=== PATIENT | female | born 1980 | race Caucasian/White ===

== ENCOUNTER 2020-10-25 16:47 | Inpatient (IN) | payer MEDICAID, SELFPAY ==
[2020-10-25 16:48] VITALS: BP 196/100; PULSE 117; RESP 16; TEMP 36.2; O2SAT 100; BMI 21.2
--- NOTE | 2020-10-25 18:25 | EKG12_ITS ---
Test Reason : SUB ABUSE Blood Pressure : / mmHG Vent. Rate : 096 BPM Atrial Rate : 096 BPM P-R Int : 186 ms QRS Dur : 074 ms QT Int : 344 ms P-R-T Axes : 000 062 051 degrees QTc Int : 434 ms Normal sinus rhythm Normal ECG Confirmed by SYLVESTER LUGO, SEAMUS ([id number]), managing editor KENDELL STEWART ([id number]) on 10/30/2020 9:04:32 AM Referred By: Confirmed By:RADHA PHAN MD
--- NOTE | 2020-10-25 18:27 | EDS_ITS ---
HPI History of Present Illness Chief Complaint: Substance Abuse Informant: patient and friend Narrative Narrative: 39-year-old female arriving to the emergency department requesting detox from alcohol. Patient states that she has been drinking alcohol every day since 2012. Most days she will have at least 6-12 beers and every other day will have at least 1 pint of vodka or rum with the beer. She states that she wakes up in the morning has a couple coffee on a couple hours later she will need to start drinking. She is not currently working has been about 2 years since she last worked. Her mom is supporting her income segundo advised her the alcohol. She states it is because some family issues. Patient states the reason for seeking detox today is that she is just tired of depending on it. She also notes a history of Percocet and OxyContin abuse and self detox and the last use of that was 2015. She denies any suicidal or homicidal ideation. Patient notes her last alcoholic drink was at 1800 hrs. yesterday. She denies any auditory visual hallucinations. She feels sweaty with hot flashes. She feels palpitations. [facility] Medical History Alcohol abuse Anxiety Hypertension Substance abuse Home Medications NK 10/25/20 [History Last Taken Unknown] Allergy/AdvReac Type Severity Reaction Status Date / Time No Known Allergies Allergy Verified 10/25/20 16:50 Social History (Updated 10/25/20 @ 18:[address] Richar Ventura DO) Smoking Status: Current every day smoker tobacco type: cigarettes alcohol intake: current alcohol intake frequency: other Alcohol type: beer and hard liquor details: Alcoholism substance use type: other details: Former opiate addiction ROS ROS ED Constitutional Constitutional ED: Reports chills and sweats; Denies weight loss Eyes Eyes: Denies change in vision or diplopia ENT ENT ED: Denies ear pain, rhinorrhea or sore throat Cardiovascular Cardiovascular: Reports palpitations; Denies chest pain, orthopnea or racing heartbeat Respiratory/Chest Respiratory/Chest: Denies cough, dyspnea or orthopnea Gastrointestinal Gastrointestinal: Reports abdominal pain and nausea; Denies diarrhea or vomiting Genitourinary Genitourinary ED: Denies dysuria, hematuria or urinary frequency Musculoskeletal Musculoskeletal: Reports myalgias; Denies arthralgias Integumentary Denies abscess or rash Neurologic Neurologic: Denies headache(s) or weakness Psychiatric Psychiatric: Denies anxiety, depression, suicidal ideation or suicidal thoughts Endocrine Endocrinology: Denies polydipsia, polyphagia or polyuria Allergic/Immunologic Allergic/Immunologic ED: Denies mouth swelling, tongue swelling or urticaria EXAM Physical Exam Const Vital Signs: 10/25/20 16:48 10/25/20 19:23 10/25/20 19:24 Temperature 97.2 F L 98.2 F Temperature Source Temporal Temporal Pulse Rate 117 H 89 Respiratory Rate 16 16 Blood Pressure 196/100 H 144/92 H 144/92 H Blood Pressure Mean 132 109 109 Blood Pressure Source Monitor Blood Pressure Position Semi-Fowlers Blood Pressure Location Right Arm Pulse Ox 100 99 Oxygen Delivery Method Room Air Room Air Positive well nourished and well developed General Appearance ED: well developed HEENT Reports normocephalic, head/scalp atraumatic and moist mucous membranes Eyes PERRL and EOMs intact bilaterally Neck no lymphadenopathy, supple and no JVD Resp normal respiratory effort and clear to auscultation bilaterally Cardio regular rate and no murmurs Rate: tachycardic GI normal to inspection, nondistended, normoactive bowel sounds and non-tender Palpation: soft Back/Spine no CVA tenderness and normal ROM Extremity normal to inspection General Extremety ED: Negative for edema General Extremity: Negative for edema Neuro oriented x3 and CN's II-XII intact bilaterally Sensorium / Orientation: alert Motor Exam: strength 5/5 throughout Psych mental status grossly normal Mood & Affect: Negative for depressed or tearful Skin no rashes or lesions noted and no wounds Skin Narrative: Patient is diaphoretic MDM MDM MDM Narrative Medical decision making narrative: We will work to medically clear the patient. If she is agreeable to the rules of the program we will speak with the hospitalist regarding admission Lab Data Attestation: I reviewed the patient's lab results. Labs: Laboratory Results - last 24 hr 10/25/20 10/25/20 10/25/20 18:50 18:50 18:50 WBC 8.8 RBC 4.59 Hgb 14.3 Hct 42.9 MCV 93.5 MCH 31.2 MCHC 33.3 RDW Std Deviation 43.9 RDW Coeff of Lizabeth 12.8 Plt Count 334 MPV 9.9 Immature Gran % (Auto) 0.200 Neut % (Auto) 71.3 H Lymph % (Auto) 20.5 [place] % (Auto) 6.6 Eos % (Auto) 0.7 Baso % (Auto) 0.7 Absolute Neuts (auto) 6.3 Absolute Lymphs (auto) 1.81 Nucleated RBC % 0 PT Cancelled INR Cancelled Sodium 136 Potassium 3.5 Chloride 102 Carbon Dioxide 26.0 Anion Gap 8 BUN 9 Creatinine 0.79 Estim Creat Clear Calc 84.33 Est GFR (MDRD) Af Amer 103 Est GFR (MDRD) Non-Af 85 BUN/Creatinine Ratio 11.4 Glucose 109 H Calcium 9.5 Total Bilirubin 0.60 AST 20 ALT 23 Alkaline Phosphatase 124 H Total Protein 9.3 H Albumin 4.7 Globulin 4.6 H Albumin/Globulin Ratio 1.0 Urine Test Ur Drug Screen Comment Ethyl Alcohol 10/25/20 10/25/20 10/25/20 18:50 19:20 19:46 WBC RBC Hgb Hct MCV MCH MCHC RDW Std Deviation RDW Coeff of Lizabeth Plt Count MPV Immature Gran % (Auto) Neut % (Auto) Lymph % (Auto) [place] % (Auto) Eos % (Auto) Baso % (Auto) Absolute Neuts (auto) Absolute Lymphs (auto) Nucleated RBC % PT 12.4 INR 1.0 Sodium Potassium Chloride Carbon Dioxide Anion Gap BUN Creatinine Estim Creat Clear Calc Est GFR (MDRD) Af Amer Est GFR (MDRD) Non-Af BUN/Creatinine Ratio Glucose Calcium Total Bilirubin AST ALT Alkaline Phosphatase Total Protein Albumin Globulin Albumin/Globulin Ratio Urine Test Ur Drug Screen Comment Ethyl Alcohol < 3.0 10/25/20 19:46 WBC RBC Hgb Hct MCV MCH MCHC RDW Std Deviation RDW Coeff of Lizabeth Plt Count MPV Immature Gran % (Auto) Neut % (Auto) Lymph % (Auto) [place] % (Auto) Eos % (Auto) Baso % (Auto) Absolute Neuts (auto) Absolute Lymphs (auto) Nucleated RBC % PT INR Sodium Potassium Chloride Carbon Dioxide Anion Gap BUN Creatinine Estim Creat Clear Calc Est GFR (MDRD) Af Amer Est GFR (MDRD) Non-Af BUN/Creatinine Ratio Glucose Calcium Total Bilirubin AST ALT Alkaline Phosphatase Total Protein Albumin Globulin Albumin/Globulin Ratio Urine Test Negative Ur Drug Screen Comment Ethyl Alcohol EKG Initial EKG: Attestation: I personally reviewed and interpreted this EKG as follows: Comments: EKG demonstrates a normal sinus rhythm at a rate of 96 bpm no concerning features of ACS or ectopy. Discharge Plan Dx/Rx/DC Orders Clinical Impression: Alcohol withdrawal Disposition Disposition: Acute Care Hospital [facility]
--- NOTE | 2020-10-25 18:31 | ED.RN ---
NO OLD EKGS IN MUSE
[2020-10-25 19:02] LABS: Absolute Lymphocyte Count 1.81 X10^3/uL (0.83-4.51); Absolute Neutrophil Count 6.3 X10^3/uL (2.0-7.7); Basophil# 0.06 X10^3/uL; Basophil% 0.7 % (0-1); Eosinophil# 0.06 X10^3/uL; Eosinophils% 0.7 % (0-5); Hematocrit 42.9 % (37-47); Hemoglobin 14.3 g/dL (12.0-15.0); Lymphocyte # 1.81 X10^3/ul (0.83-4.51); Lymphocyte % 20.5 % (19-41); Mean Corp Hgb Conc 33.3 g/dL (32-36); Mean Corpuscular Hgb 31.2 pg (27.0-32.0); Mean Corpuscular Volume 93.5 fL (81-99); Mean Platelet Vol. 9.9 fl (6.2-12.0); Monocyte# 0.58 X10^3/uL; Monocyte% 6.6 % (0-10); NRBC Flagged by Analyzer 0 % (0-5); Neutrophil # 6.28 X10^3/uL (2.7-7.7); Neutrophil % 71.3 % (47-70); Platelet Count 334 K/mm3 (150-450); RBC Distribution Width CV 12.8 % (11.6-14.6); RBC Distribution Width SD 43.9 fl (35.1-43.9); Red Blood Count 4.59 M/mm3 (4.2-5.4); White Blood Count 8.8 K/mm3 (4.4-11.0)
[2020-10-25 19:22] LABS: AST(SGOT) 20 U/L (15-37); Alanine Aminotransfer ALT/SGPT 23 U/L (13-56); Albumin, Serum 4.7 g/dL (3.2-5.0); Alkaline Phosphatase 124 U/L (45-117); Anion Gap 8 (5-15); BUN 9 mg/dL (7-18); BUN/Creat Ratio 11.4 RATIO (10-20); Calcium,Total 9.5 mg/dL (8.5-10.1); Chloride 102 mmol/L (98-107); Creatinine, Serum 0.79 mg/dL (0.55-1.02); EST Glomerular Filtration Rate 85 mL/min (>60); Est Glom Filt Rate - Afr Amer 103 mL/min (>60); Estimated Creatinine Clearance 84.33 ml/min; Globulin 4.6 g/dL (2.2-4.2); Glucose 109 mg/dL (74-106); Potassium 3.5 mmol/L (3.5-5.1); Protein, Total 9.3 g/dL (6.4-8.2); Sodium Level 136 mmol/L (136-145)
[2020-10-25 19:23] VITALS: BP 144/92
[2020-10-25 19:24] VITALS: BP 144/92; PULSE 89; RESP 16; TEMP 36.8; O2SAT 99
[2020-10-25 19:27] LABS: Alcohol, Blood (Medical)-Serum < 3.0 mg/dL
[2020-10-25] MEDS: Ondansetron ODT 4 MG Tablet PO (19:31)
[2020-10-25 19:36] LABS: Prothrombin Time (Protime)PT. 12.4 SECONDS (11.7-14.9)
--- NOTE | 2020-10-25 19:57 | CM.ED ---
SOCIAL WORK Referral Source: Self-referral Reason for Consult: Substance Abuse Patient presents to [facility] ER for detox from alcohol. Patient states last drink was around 6-7p last evening. Patient completed [facility] agreement with nursing. Patient denies any questions or concerns. Malia with [facility] notified of admission. Plan: Admit to [facility] [place]. MICHAEL Bolton, POOL MANAGER
--- NOTE | 2020-10-25 20:05 | PCM.HP.STD ---
HPI - General General Date of Admission: 10/25/20 Date of Service: 10/25/20 Chief Complaint: Acute EtOH withdrawal HPI Narrative The patient is a 39 y/o F w/ PMHx: HTN untreated that she notes is related to Anxiety/Depression, Tobacco use, Former opiate abuse (pills, no IV hx, clean since 2015), EtOH abuse (6-8 beers, 12 ounce daily, QOD vodka/rum 1 pint) who presents to the [facility] ED on 10/25/20 w/ noted acute EtOH withdrawal, onset starting on day of ED presentation toward the evening following last EtOH intake the evening prior with onset of nausea, tremors, agitation, tactile disturbances. Patient interested in attaining sober status and notes that she currently lives with her parents who are both alcoholics. She has been able to find separate living and only recently has been attempting to move out. Work-up in the ED included T 98.2, heart rate 89, BP 144/92, respiratory rate 16, 99% on room air, CBC with WC 8.8, hemoglobin 14.3, platelet 334 without marked shift, unremarkable coags, CMP with glucose 109, alk phos 124 otherwise not marked appearing hepatic profile, negative testing, EtOH < 3, pending UDS upon evaluation. [facility] Medical History (Updated 10/25/20 @ 20:[address] Salud Dhaliwal MD) Alcohol abuse Anxiety Hypertension Substance abuse Home Medications NK 10/25/20 [History Last Taken Unknown] Allergy/AdvReac Type Severity Reaction Status Date / Time No Known Allergies Allergy Verified 10/25/20 16:50 Family History (Updated 10/25/20 @ 20:[address] Salud Dhaliwal MD) Mother Hypertension Diabetes Alcohol abuse Father Hypertension Alcohol abuse Surgical History (Updated 10/25/20 @ 20:[address] Salud Dhaliwal MD) S/P ORIF (open reduction internal fixation) fracture Social History (Updated 10/25/20 @ 20:[address] Salud Dhaliwal MD) household members: other details: Currently living with parents, both w/ EtOH abuse, moving out to friends. Smoking Status: Current every day smoker tobacco type: cigarettes Smoking packs per day: 1 Smoking cigarettes per day: 20.0 Years smoked: 19 Smoking pack-years: 19.00 alcohol intake: current alcohol intake frequency: other Alcohol type: beer and hard liquor details: 6-8, 12 ounce beers daily, QOD 1 pint vodka/rum substance use type: other details: Former opiate addiction, clean since 2016. No IVDA history. ROS ROS Narrative Admission Review of Systems: CONSTITUTIONAL: No weight loss, fever, chills, + weakness or fatigue. HEENT: Eyes: No visual loss, blurred vision, double vision or yellow sclerae. Ears, Nose, Throat: No hearing loss, sneezing, congestion, runny nose or sore throat. SKIN: No rash or itching, lesions, wounds. CARDIOVASCULAR: No chest pain, chest pressure or chest discomfort, palpitations, edema, orthopnea, syncopal events. RESPIRATORY: No shortness of breath, cough or sputum, wheezing, hemoptysis. GASTROINTESTINAL: + anorexia, No nausea, vomiting, abdominal pain, diarrhea, melena, BRBPR. GENITOURINARY: No dysuria, frequency, urgency or retention. NEUROLOGICAL: + Tremors, tactile changes, No headache, dizziness, syncope, paralysis, ataxia, focal weakness, change in bowel or bladder control, seizure. MUSCULOSKELETAL: No muscle, back pain, joint pain or stiffness. HEMATOLOGIC: No anemia, bleeding or bruising. LYMPHATICS: No enlarged nodes. No history of splenectomy. PSYCHIATRIC: + history of depression or anxiety. ENDOCRINOLOGIC: + reports of sweating, No cold or heat intolerance. No polyuria or polydipsia. ALLERGIES: No history of asthma, hives, eczema or rhinitis. Vital Signs Vital Signs Vital Signs: 10/25/20 16:48 10/25/20 19:23 10/25/20 19:24 Temperature 97.2 F L 98.2 F Temperature Source Temporal Temporal Pulse Rate 117 H 89 Respiratory Rate 16 16 Blood Pressure 196/100 H 144/92 H 144/92 H Blood Pressure Mean 132 109 109 Blood Pressure Source Monitor Blood Pressure Position Semi-Fowlers Blood Pressure Location Right Arm Pulse Ox 100 99 Oxygen Delivery Method Room Air Room Air Weight Weight: 127 lb 13.89 oz Body Mass Index (BMI) 21.2 Physical Exam Narrative Physical Examination: General: Awake, alert, oriented x 3 and cooperative, seated upright in the ED bed, anxious, mild tremors evident. Skin: Normal color, normal turgor, no icterus, no cyanosis. HEENT: AT/NC, EOMI, PERRLA, mildly dry MM, no carotid bruits or JVD noted. Lungs: CTA bilaterally, moderate effort, mild decrease BL bases, no rales, ronchi or wheezing. Heart: Mildly tachycardic with regular rhythm; no gallop, rub audible. Abdomen: Soft, NTTP, ND, normal BS, no marked HSM. Extremities: No cyanosis, clubbing, or edema. Neurological: Patient awake, alert, oriented as noted, cognitive function intact; pupils equally reactive to light and accommodation, cranial nerves II-XII grossly normal, moving all 4 extremities, no focal deficits, strength mildly global decrease given acute presentation, mild tremors evident, mildly restless. Psychiatric: Affect appears mildly restless, anxious, no acute evidence of depressive feelings. Results Lab / Micro Data Result Diagrams: 10/25/20 18:50 10/25/20 18:50 Labs: Laboratory Results - last 24 hr 10/25/20 18:50: WBC 8.8, RBC 4.59, Hgb 14.3, Hct 42.9, MCV 93.5, MCH 31.2, MCHC 33.3, RDW Std Deviation 43.9, RDW Coeff of Lizabeth 12.8, Plt Count 334, MPV 9.9, Immature Gran % (Auto) 0.200, Neut % (Auto) 71.3 H, Lymph % (Auto) 20.5, [place] % (Auto) 6.6, Eos % (Auto) 0.7, Baso % (Auto) 0.7, Absolute Neuts (auto) 6.3, Absolute Lymphs (auto) 1.81, Nucleated RBC % 0 10/25/20 18:50: PT Cancelled, INR Cancelled 10/25/20 18:50: Sodium 136, Potassium 3.5, Chloride 102, Carbon Dioxide 26.0, Anion Gap 8, BUN 9, Creatinine 0.79, Estim Creat Clear Calc 84.33, Est GFR (MDRD) Af Amer 103, Est GFR (MDRD) Non-Af 85, BUN/Creatinine Ratio 11.4, Glucose 109 H, Calcium 9.5, Total Bilirubin 0.60, AST 20, ALT 23, Alkaline Phosphatase 124 H, Total Protein 9.3 H, Albumin 4.7, Globulin 4.6 H, Albumin/Globulin Ratio 1.0 10/25/20 18:50: Ethyl Alcohol < 3.0 10/25/20 19:20: PT 12.4, INR 1.0 10/25/20 19:46: Ur Drug Screen Comment Assessment & Plan Assessment/Plan (1) Alcohol withdrawal: QUALIFIERS: Complication of substance-induced condition: uncomplicated Qualified Code(s): F10.230 - Alcohol dependence with withdrawal, uncomplicated PLAN: The patient is a 39 y/o F w/ PMHx: HTN untreated that she notes is related to Anxiety/Depression, Tobacco use, Former opiate abuse (pills, no IV hx, clean since 2015), EtOH abuse (6-8 beers, 12 ounce daily, QOD vodka/rum 1 pint) who presents to the [facility] ED on 10/25/20 w/ noted acute EtOH withdrawal. 1. Acute EtOH Withdrawal: Will admit to [facility], routine labs obtained in the ED upon presentation. Given interest in sobriety, will initiate and continue on protocol with taper course of Phenobarbital, scheduled gabapentin for seizure prophylaxis, as needed Catapres, Bentyl, Vistaril, IV fluids, IV antiemetics, Tylenol as needed for pain. Will consult Case management for assistance for transition to next level of rehabilitation care. Mag, phos pending. Maintain on CIWA protocol concurrently. 2. Hypertension, untreated: Patient with BP above goal although notes it is primarily related to anxiety, will continue to closely monitor level and if remains elevated despite appropriate withdrawal treatment may need to consider oral addition, as needed IV hydralazine in interim. 3. Former opiate abuse: Patient with ingestion of pills, clean since 2015, denies any IV drug abuse previously, encourage continued 180 follow-up and 6 clean status. 4. Tobacco Abuse: Encouraged cessation, inpatient consultation per RT, NR if desired. 5. Anxiety and depression: Likely greatly contributing to current presentation, strongly encourage counseling with 180 follow-up. 6. DVT prophylaxis: Low risk, encourage ambulation. Charges/Coding Visit Charges Inpatient E&M: 51884 Init Hosp L3
[2020-10-25 20:07] LABS: Internal QC Validated? YES +Cl - CLEAR BKGD; Pregnancy, Urine Negative Negative
[2020-10-25 20:37] LABS: Magnesium 2.3 mg/dL (1.6-2.6); Phosphorus 2.9 mg/dL (2.5-4.9)
[2020-10-25 20:42] VITALS: BP 141/72; PULSE 83; RESP 16; TEMP 36.6; O2SAT 99
[2020-10-25 20:45] LABS: Amphetamine Urine VISTA NEGATIVE (<1000 ng/mL); Barbiturate Urine VISTA NEGATIVE (< 200 ng/mL); Benzodiazepine Urine VISTA NEGATIVE (< 200 ng/mL); Cocaine Urine VISTA NEGATIVE (< 300 ng/mL); Ecstacy Urine VISTA NEGATIVE (< 500 ng/mL); Methadone Urine VISTA NEGATIVE (< 300 ng/mL); PCP Urine VISTA NEGATIVE (< 25 ng/mL); THC Urine VISTA POSITIVE (< 50 ng/mL); Vista UDS pH Range 5
[2020-10-25 21:09] VITALS: BMI 20.2
[2020-10-25 21:25] VITALS: BP 129/85; PULSE 89; RESP 16; TEMP 36.9; O2SAT 98
[2020-10-25] MEDS: Lactated Ringers 1,000 ML 125 ML IV (22:00)
[2020-10-25] MEDS: Phenobarbital 32.4 MG Tablet 64.8 MG PO (22:00)
[2020-10-26] MEDS: Phenobarbital 32.4 MG Tablet 64.8 MG PO ×6 (01:45→21:32)
[2020-10-26 03:25] VITALS: BP 118/88; PULSE 97; RESP 16; TEMP 36.9; O2SAT 99
[2020-10-26 07:01] VITALS: O2SAT 95
[2020-10-26 08:53] VITALS: BP 136/86; PULSE 91; RESP 16; TEMP 36.6; O2SAT 98
[2020-10-26] MEDS: Ondansetron 8 MG Tablet PO (09:02)
[2020-10-26] MEDS: Ibuprofen 600 MG Tablet PO (09:02)
[2020-10-26] MEDS: Multivitamins,Therapeutic Tablet 1 TABLET PO (09:02)
[2020-10-26] MEDS: Folic Acid 1 MG Tablet PO (09:02)
[2020-10-26] MEDS: Thiamine Hydrochloride 100 MG Tablet PO (09:02)
[2020-10-26] MEDS: Dicyclomine 10 MG Capsule 20 MG PO ×2 (09:02→17:53)
[2020-10-26] MEDS: Gabapentin 300 MG Capsule PO (09:11)
--- NOTE | 2020-10-26 09:39 | ADDICTION ---
This sign writer letterer or painter met with PT to conduct ASAM, MSE, AUDIT assessments and to plan for d/c. PT A+Ox4. PT to f/u with [facility] for ongoing intervention. This sign writer letterer or painter attempted to contact [facility] to make appointment, but could not reach staff. This sign writer letterer or painter left message with PT's phone number requesting a call to schedule. PT to schedule with [facility] by 10/30/20 and is amiable with this plan. PT given resources and [facility] contact information.
[2020-10-26 13:16] VITALS: BP 142/99; PULSE 106; RESP 18; TEMP 37.1; O2SAT 98
[2020-10-26] MEDS: hydrOXYzine PAM 25 MG Capsule 50 MG PO ×2 (13:18→17:53)
--- NOTE | 2020-10-26 16:04 | PCM.PN.HOSP ---
Subjective Subjective Patient was seen and examined today, she voices no complaints of any chest pain or shortness of breath, she states she is a little bit anxious. Objective Data Objective Data Vital Signs: Vital Signs Temp Pulse Resp BP Pulse Ox 98.8 F 106 H 18 142/99 H 98 10/26/20 13:16 10/26/20 13:16 10/26/20 13:16 10/26/20 13:16 10/26/20 13:16 Oxygen Delivery Method Room Air Weight: 55.1 kg Body Mass Index (BMI) 20.2 Intake & Output: Intake and Output for Last 24 Hours 10/24/20 10/25/20 10/26/20 23:59 23:59 23:59 Intake Total 1700 / 1700 Balance 1700 / 1700 Lab / Micro Data Result Diagrams: 10/25/20 18:50 10/25/20 18:50 Labs: Laboratory Results - last 24 hr 10/25/20 18:50: WBC 8.8, RBC 4.59, Hgb 14.3, Hct 42.9, MCV 93.5, MCH 31.2, MCHC 33.3, RDW Std Deviation 43.9, RDW Coeff of Lizabeth 12.8, Plt Count 334, MPV 9.9, Immature Gran % (Auto) 0.200, Neut % (Auto) 71.3 H, Lymph % (Auto) 20.5, [place] % (Auto) 6.6, Eos % (Auto) 0.7, Baso % (Auto) 0.7, Absolute Neuts (auto) 6.3, Absolute Lymphs (auto) 1.81, Nucleated RBC % 0 10/25/20 18:50: PT Cancelled, INR Cancelled 10/25/20 18:50: Sodium 136, Potassium 3.5, Chloride 102, Carbon Dioxide 26.0, Anion Gap 8, BUN 9, Creatinine 0.79, Estim Creat Clear Calc 84.33, Est GFR (MDRD) Af Amer 103, Est GFR (MDRD) Non-Af 85, BUN/Creatinine Ratio 11.4, Glucose 109 H, Calcium 9.5, Total Bilirubin 0.60, AST 20, ALT 23, Alkaline Phosphatase 124 H, Total Protein 9.3 H, Albumin 4.7, Globulin 4.6 H, Albumin/Globulin Ratio 1.0 10/25/20 18:50: Ethyl Alcohol < 3.0 10/25/20 18:50: Phosphorus 2.9, Magnesium 2.3 10/25/20 19:20: PT 12.4, INR 1.0 10/25/20 19:46: Urine Opiates Screen NEGATIVE, Urine Methadone Screen NEGATIVE, Ur Barbiturates Screen NEGATIVE, Ur Phencyclidine Scrn NEGATIVE, Ur Amphetamines Screen NEGATIVE, U Methamphetamin-MDMA NEGATIVE, U Benzodiazepines Scrn NEGATIVE, Urine Cocaine Screen NEGATIVE, U Cannabinoids Screen POSITIVE H, Ur Drug Screen Comment 10/25/20 19:46: Urine Test Negative Physical Exam Const alert, oriented x3, no apparent distress and healthy appearing General Appearance: cooperative, well kempt and well developed Orientation / Consciousness: awake, oriented to person, oriented to place and oriented to time HEENT normocephalic, head/scalp atraumatic and moist oral mucous membranes Head and Scalp: normocephalic Eyes PERRL, EOMs intact bilaterally and conjunctivae normal Neck nuchal rigidity, supple, no JVD, thyroid normal and no carotid bruits General: trachea midline Resp normal respiratory effort, no retractions, no use of accessory muscles and clear to auscultation bilaterally Auscultation: Negative for rales, rhonchi or wheezes Cardio regular rate, regular rhythm, S1 normal heart sound, S2 normal heart sound, no murmurs, no rub and no gallops GI normal to inspection, nondistended, normoactive bowel sounds, soft to palpation, non-tender and non-distended Extremity normal to inspection and no clubbing, cyanosis or edema Skin no rashes or lesions noted General Skin Exam: no breakdown Neuro oriented x3, CN's II-XII intact bilaterally, no focal motor deficits and no sensory deficits noted Sensorium / Orientation: awake and alert Speech: speech normal Psych thought process normal and affect normal Assessment & Plan Assessment/Plan (1) Alcohol withdrawal: QUALIFIERS: Complication of substance-induced condition: uncomplicated Qualified Code(s): F10.230 - Alcohol dependence with withdrawal, uncomplicated PLAN: #1. Acute alcohol withdrawal-continue present medications #2 chronic alcoholism Charges/Coding Visit Charges Inpatient E&M: 94562 Subs Hosp L2
[2020-10-26 17:51] VITALS: BP 123/85; PULSE 79; RESP 16; TEMP 36.9; O2SAT 100
[2020-10-26 22:08] VITALS: BP 100/74; PULSE 73; RESP 16; TEMP 36.7; O2SAT 100
[2020-10-27] MEDS: Phenobarbital 32.4 MG Tablet 64.8 MG PO ×5 (02:02→17:11)
[2020-10-27 03:58] VITALS: BP 112/73; PULSE 86; RESP 15; TEMP 36.7; O2SAT 100
[2020-10-27 07:12] VITALS: O2SAT 98
[2020-10-27] MEDS: Multivitamins,Therapeutic Tablet 1 TABLET PO (09:35)
[2020-10-27] MEDS: Thiamine Hydrochloride 100 MG Tablet PO (09:35)
[2020-10-27] MEDS: Folic Acid 1 MG Tablet PO (09:35)
[2020-10-27 09:39] VITALS: BP 107/72; PULSE 97; RESP 16; TEMP 36.6; O2SAT 99
[2020-10-27 13:19] VITALS: BP 138/87; PULSE 89; RESP 16; TEMP 36.4; O2SAT 100
[2020-10-27 17:13] VITALS: BP 137/90; PULSE 81; RESP 16; TEMP 36.7; O2SAT 99
--- NOTE | 2020-10-27 18:03 | PCM.PN.HOSP ---
Subjective Subjective Patient was seen and examined today, she does not complain of feeling anxious or tremorous today, she states that she feels she can be discharged over the weekend and follow-up with 180 next week. Patient states she feels that she will not drink if she goes home this weekend. Objective Data Objective Data Vital Signs: Vital Signs Temp Pulse Resp BP Pulse Ox 98.1 F 81 16 137/90 H 99 10/27/20 17:13 10/27/20 17:13 10/27/20 17:13 10/27/20 17:13 10/27/20 17:13 Oxygen Delivery Method Room Air Weight: 55.1 kg Body Mass Index (BMI) 20.2 Intake & Output: Intake and Output for Last 24 Hours 10/25/20 10/26/20 10/27/20 23:59 23:59 23:59 Intake Total 1700 / 1700 Balance 1700 / 1700 Lab / Micro Data Result Diagrams: 10/25/20 18:50 10/25/20 18:50 Physical Exam Const alert, oriented x3, no apparent distress and healthy appearing General Appearance: cooperative, well kempt and well developed Orientation / Consciousness: awake, oriented to person, oriented to place and oriented to time HEENT normocephalic and moist oral mucous membranes Eyes PERRL, EOMs intact bilaterally and conjunctivae normal Neck nuchal rigidity, supple, no JVD, thyroid normal and no carotid bruits General: trachea midline Resp normal respiratory effort and clear to auscultation bilaterally Auscultation: Negative for rales, rhonchi or wheezes Cardio regular rate, regular rhythm, no murmurs, no rub and no gallops GI normal to inspection, nondistended, normoactive bowel sounds, soft to palpation, non-tender and non-distended Extremity no clubbing, cyanosis or edema Skin no rashes or lesions noted General Skin Exam: no breakdown Neuro oriented x3, CN's II-XII intact bilaterally, no focal motor deficits and no sensory deficits noted Sensorium / Orientation: awake and alert Speech: speech normal Psych thought process normal and affect normal Assessment & Plan Assessment/Plan (1) Alcohol withdrawal: QUALIFIERS: Complication of substance-induced condition: uncomplicated Qualified Code(s): F10.230 - Alcohol dependence with withdrawal, uncomplicated PLAN: #1. Acute alcohol withdrawal-continue present medications, patient will be reevaluated tomorrow for discharge home, I have decided to taper the patient's phenobarbital further. #2 chronic alcoholism Charges/Coding Visit Charges Inpatient E&M: 67193 Subs Hosp L2
[2020-10-27 19:23] VITALS: BP 119/78; PULSE 82; RESP 16; TEMP 36.8; O2SAT 100
[2020-10-27] MEDS: Ibuprofen 600 MG Tablet PO (19:35)
[2020-10-27] MEDS: Phenobarbital 32.4 MG Tablet PO (21:14)
[2020-10-28 05:59] VITALS: BP 127/77; PULSE 92; RESP 16; TEMP 37.2; O2SAT 100
[2020-10-28] MEDS: Phenobarbital 32.4 MG Tablet PO (06:01)
[2020-10-28 09:27] VITALS: BP 136/80; PULSE 88; RESP 14; TEMP 36.6; O2SAT 100
[2020-10-28] MEDS: Multivitamins,Therapeutic Tablet 1 TABLET PO (09:38)
[2020-10-28] MEDS: Folic Acid 1 MG Tablet PO (09:38)
[2020-10-28] MEDS: Thiamine Hydrochloride 100 MG Tablet PO (09:38)
--- NOTE | 2020-10-28 11:59 | PCM.DC ---
Discharge Instructions Diet Discharge Diet: No restrictions Activity Discharge Activity: Return to Normal Activity Follow Up Care Test Results: Test results from this visit will be discussed in further detail at your follow-up appointment, if applicable. Discharge Plan Admission Admit Date/Time: 10/25/20 20:07 Primary Reason for Your Visit: alcohol detox Attending Provider: Stalin Thomas Primary Care Provider: Care Physician,No Primary Instructions Additional Instructions / Restrictions: Follow-up with outpatient alcohol recovery as instructed Discharge Orders/Prescriptions Prescriptions: New hydroxyzine pamoate [Vistaril] 25 mg capsule 25 mg PO TID PRN (Reason: anxiey) Qty: 20 RF: 0 Referrals / Follow Up: Care Physician,No Primary [Primary Care Provider] - Disposition Disposition (needs filled in before D/C Order can be placed): Home, Self Care
--- NOTE | 2020-10-28 17:38 | PCM.DC.SUM ---
Providers Date of Admission: 10/25/20 Date of Discharge: 10/28/20 Primary Care Physician: No Primary Care Phys Reason For Visit: ACUTE ETOH WITHDRAWAL Diagnosis Discharge Diagnosis (1) Alcohol withdrawal: Status: Acute Code(s): F10.239 - Alcohol dependence with withdrawal, unspecified Qualifiers: Complication of substance-induced condition: uncomplicated Qualified Code(s): F10.230 - Alcohol dependence with withdrawal, uncomplicated Plan: 1. Acute alcohol withdrawal #2 chronic alcoholism #3 chronic anxiety Medications at Discharge Home Medications hydroxyzine pamoate [Vistaril] 25 mg PO TID PRN #20 cap 10/28/20 Hospital Course Operations None Procedures None Summary of Care Provided Minutes Spent on Discharge: Hospital Course: This 39-year-old white female was seen in the emergency room at [facility] requesting services for alcohol detox. Patient was admitted to [place] [address] and orders were entered using the alcohol detox order set. Patient had no evidence of DTs during her hospitalization and she met with the addiction social pharmacy services director and arranged for follow-up at an outpatient alcohol recovery facility. Patient did not wish to do inpatient detox at a facility. On 10/28/2020, patient was seen and examined: On examination she appeared in good health and spirits, she does not appear to be in any distress. Vital signs as documented. Skin warm and dry and without overt rashes. Neck without JVD, thyroid appears normal, trachea is midline, neck is supple. Lungs clear, normal air movement was noted. Heart exam notable for regular rhythm, normal sounds and absence of murmurs, rubs or gallops. Abdomen unremarkable and without evidence of organomegaly, masses, or abdominal aortic enlargement, bowel sounds are present in all 4 quadrants, no abdominal tenderness was noted. Extremities nonedematous, no cyanosis was noted, no clubbing was noted. Neuro: Cranial nerves II through XII are grossly intact, no focal motor deficits were noted, sensation to light touch and pinprick is intact, motor exam 5/5 throughout. Psych: Patient is alert and oriented x3, she does not appear anxious or depressed, she does not appear agitated. I had a discussion with the patient concerning her chronic anxiety disorder, she states that she was on Atarax before for this and it helped her, I agreed to give her a short course of Vistaril to take as needed for anxiety. Patient appeared stable for discharge on 10/28/2020. Weight / BMI Weight Weight: 55.1 kg Body Mass Index (BMI) 20.2 ABG / Lab / Microbiology Data Result Diagrams: 10/25/20 18:50 10/25/20 18:50 D/C Instructions Discharge Diet: No restrictions Meaningful Use Info Meaningful Use Diagnoses (Choose all that apply): None applicable Discharge Plan Admission Admit Date/Time: 10/25/20 20:07 Primary Reason for Your Visit: alcohol detox Attending Provider: Stalin Thomas Primary Care Provider: Care Physician,No Primary Instructions Additional Instructions / Restrictions: Follow-up with outpatient alcohol recovery as instructed Discharge Orders/Prescriptions Prescriptions: New hydroxyzine pamoate [Vistaril] 25 mg capsule 25 mg PO TID PRN (Reason: anxiey) Qty: 20 RF: 0 Referrals / Follow Up: Care Physician,No Primary [Primary Care Provider] - Disposition Disposition (needs filled in before D/C Order can be placed): Home, Self Care Charges/Coding Visit Charges Inpatient E&M: 35422 Disch Hosp
== END 2020-10-28 13:41 | disposition home or self-care (01) | DRG 773 ==
LOC: ED 18:37 → MS3 20:53
PROVIDERS: Admitting Provider Family Medicine; Emergency Provider Emergency Medicine; Visit Provider Internal Medicine
DX: F10.230 Alcohol dependence with withdrawal, uncomplicated (principal); I10 Essential (primary) hypertension; F32.9 Major depressive disorder, single episode, unspecified; F41.9 Anxiety disorder, unspecified; F17.210 Nicotine dependence, cigarettes, uncomplicated; F11.21 Opioid dependence, in remission
CPT/HCPCS: 80053; 80307; 81025; 82077; 83735; 84100; 85025; 85610; 93005; 99283; J7120; A4216